=== PATIENT | male | born 1945 | race Caucasian/White ===

== ENCOUNTER → 2017-08-04 | Outpatient (CLI) | payer OTHER ==
[~2017-08-04] MED LIST: IOPAMIDOL-370 100 ML VIAL IV ONE
== END | disposition home or self-care (01) ==
LOC: OIH 07:50
PROVIDERS: ATTEND Internal Medicine Cardiovascular Disease
DX: I71.6 Thoracoabdominal aortic aneurysm, without rupture (principal); K21.9 Gastro-esophageal reflux disease without esophagitis; E78.5 Hyperlipidemia, unspecified
CPT/HCPCS: 71275; 74174; Q9967

== ENCOUNTER → 2018-09-05 | Outpatient (CLI) | payer OTHER ==
[~2018-09-05] MED LIST changes: +IOHEXOL 350 MG/ML 100ML INFUS..BTL IV ONE; -IOPAMIDOL-370 100 ML VIAL IV ONE
== END | disposition home or self-care (01) ==
LOC: RAH 08:57
PROVIDERS: ATTEND Internal Medicine Cardiovascular Disease
DX: N20.0 Calculus of kidney (principal); I71.2 Thoracic aortic aneurysm, without rupture; N40.0 Benign prostatic hyperplasia without lower urinary tract symptoms; I70.0 Atherosclerosis of aorta
CPT/HCPCS: 71275; 74174; Q9967

== ENCOUNTER → 2018-09-11 | Outpatient (CLI) | payer OTHER | END | disposition home or self-care (01) | LOC: SHCH 10:00 | PROVIDERS: ATTEND Internal Medicine Cardiovascular Disease | DX: I51.7 Cardiomegaly (principal); I35.1 Nonrheumatic aortic (valve) insufficiency | CPT/HCPCS: 93306 ==

== ENCOUNTER → 2018-11-15 | Outpatient (CLI) | payer OTHER, SELFPAY | END | disposition home or self-care (01) | LOC: OIH 14:40 | PROVIDERS: ATTEND Internal Medicine Cardiovascular Disease | DX: Z13.6 Encounter for screening for cardiovascular disorders (principal) | CPT/HCPCS: 71275; 74174; 75571 ==

== ENCOUNTER → 2019-04-11 | Outpatient (CLI) | payer OTHER ==
[~2019-04-11] VITALS: Ht 177.8 cm; Wt 95.3 kg
[~2019-04-11] MED LIST changes: -IOHEXOL 350 MG/ML 100ML INFUS..BTL IV ONE; +REGADENOSON 0.4 MG/5 ML PF SYG IVP SCH
== END | disposition home or self-care (01) ==
LOC: SHCH 08:54
PROVIDERS: ATTEND Internal Medicine Cardiovascular Disease
DX: Q21.0 Ventricular septal defect (principal); R94.31 Abnormal electrocardiogram [ECG] [EKG]
CPT/HCPCS: 78452; 93017; 96374; A9500 ×2; J2785

== ENCOUNTER 2019-05-28 08:21 | Observation (INO) | payer OTHER ==
[2019-05-24 14:10] VITALS: BP 117/62
[2019-05-24 14:19] LABS: BASOPHILS % (AUTO) 0.4 % (0.0-5.0); EOSINOPHILS % (AUTO) 1.9 % (0.0-8.0); LYMPHOCYTES % (AUTO) 16.9 % (21.0-51.0); MEAN CORPUSCULAR VOLUME 88.3 fL (79-99); MONOCYTES % (AUTO) 10.1 % (3.0-13.0); NEUTROPHILS % (AUTO) 70.7 % (40.0-77.0); PLATELET COUNT (AUTO) 168 K/uL (130-400); RED BLOOD CELL COUNT(AUTO) 4.76 MIL/uL (4.50-6.20); RED CELL DISTRIBUTION WIDTH 13.9 % (11.0-15.5); WHITE BLOOD COUNT (AUTO) 6.3 K/uL (4.8-10.8)
[2019-05-24 14:21] LABS: APPEARANCE,URINE Clear (CLEAR); BILIRUBIN,URINE Negative (NEGATIVE); COLOR,URINE Yellow (YELLOW); GLUCOSE, URINE (UA) Negative (NEGATIVE); KETONES,URINE Negative (NEGATIVE); LEUKOCYTE ESTERASE ,URINE Trace (NEGATIVE); NITRATE,URINE Negative (NEGATIVE); OCCULT BLOOD,URINE Negative (NEGATIVE); PROTEIN,URINE Negative (NEGATIVE)
[2019-05-24 14:38] LABS: CREATININE 1.4 mg/dL (0.5-1.5); POTASSIUM 4.6 mmol/L (3.5-5.1)
[2019-05-24 14:42] LABS: INR 0.97 (0.85-1.15); PARTIAL THROMBOPLASTIN TIME 27.5 SEC (26.3-35.5); PROTHROMBIN TIME 10.2 SEC (9.6-11.6)
[2019-05-24 14:47] LABS: BACTERIA,URINE Rare /HPF (None Seen); RBC,URINE 0-1 /HPF (0-1)
[2019-05-24 14:48] LABS: SQUAMOUS EPITHELIAL CELL,UR None Seen /HPF (0-2)
--- NOTE | 2019-05-27 15:35 | NUR ---
LABS INFORMED CAITLIN CARLOS OF ABNORMAL BUN/CREA. NO ORDERS RECEIVED. PROCEED WITH PLANNED PROCEDURE.
[~2019-05-28] VITALS: Ht 180.3 cm; Wt 97.2 kg
[2019-05-28] VITALS (8 sets, daily range): BP systolic 109–146; BP diastolic 55–71
[~2019-05-28 08:21] MED LIST changes: +ASPI-1181 PO; +ESCI20TA36 PO; +LOSA50TA64 PO; +METF-444 PO; +METO-391 PO; +OMEP-50 PO; +PRAV10TA39 PO; +PRAZ2CAP2 PO; -REGADENOSON 0.4 MG/5 ML PF SYG IVP SCH; +TAMS-1 PO; +TRAZ-187 PO
[2019-05-28] MEDS ORDERED: SODIUM CHLORIDE 0.9% 1000ML 1,000 ML IV ONE (08:27)
[2019-05-28] MEDS ORDERED: SODIUM BICARB 50MEQ 50ML VIAL ONE (10:42)
[2019-05-28] MEDS ORDERED: LIDOCAINE HCL 2% 20ML ONE (10:43)
[2019-05-28] MEDS ORDERED: HEPARIN SODIUM 1000UNIT/ML 10ML VIAL ONE (10:43)
[2019-05-28] MEDS ORDERED: NITROGLYCERIN 5 MG/ML 10 ML VIAL IV ONE (10:43)
[2019-05-28] MEDS ORDERED: IOHEXOL 350 MG/ML 100ML INFUS..BTL IV ONE (10:43)
[2019-05-28] MEDS ORDERED: IOHEXOL-350 50ML VIAL IV ONE (10:43)
[2019-05-28] MEDS ORDERED: MEPERIDINE-PF 25 MG/ML SYG ONE ×2 (11:11→12:15)
[2019-05-28] MEDS ORDERED: MIDAZOLAM HCL 1 MG/ML 2ML VIAL ONE ×2 (11:11→12:15)
[2019-05-28] MEDS ORDERED: SODIUM CHLORIDE 0.9% 1000ML 1,000 ML IV SCH (12:59)
[2019-05-28] MEDS ORDERED: DEXTROSE 50%-WATER 50 ML DISP.SYRIN IV PRN (13:00)
[2019-05-28] MEDS ORDERED: ONDANSETRON HCL 4 MG/2 ML VIAL IVP PRN (13:00)
[2019-05-28] MEDS ORDERED: ACETAMINOPHEN-CODEINE 300/30MG TAB PO PRN ×2 (13:00)
[2019-05-28] MEDS ORDERED: ASPIRIN 81MG TAB.CHEW ONE (13:01)
[2019-05-28] MEDS ORDERED: CLOPIDOGREL BISULFATE 300 MG TAB ONE (13:02)
[2019-05-28] MEDS ORDERED: ATORVASTATIN CALCIUM 10 MG TABLET PO SCH (21:00)
[2019-05-28] MEDS ORDERED: **HM** PRAZOSIN 2MG PO SCH (21:00)
[2019-05-28] MEDS: INSULIN HUMULIN R 100 UNIT/ML 3ML SQ SCH (21:00)
[2019-05-28] MEDS ORDERED: TAMSULOSIN HCL 0.4 MG CAP.ER.24H PO SCH (21:00)
[2019-05-28] MEDS ORDERED: TRAZODONE HCL 100 MG TABLET PO SCH (21:00)
[2019-05-28] MEDS: **HM** TOPROL XL 50MG PO SCH (21:00)
[2019-05-29 04:01] VITALS: BP 116/67
[2019-05-29 04:18] LABS: BASOPHILS % (AUTO) 0.4 % (0.0-5.0); MEAN CORPUSCULAR HEMOGLOBIN 30.1 pg (27.0-33.0); MEAN CORPUSCULAR HGB CONC 34.5 g/dL (32.0-36.0); MEAN CORPUSCULAR VOLUME 87.1 fL (79-99); MONOCYTES % (AUTO) 10.5 % (3.0-13.0); NEUTROPHILS % (AUTO) 69.1 % (40.0-77.0); PLATELET COUNT (AUTO) 154 K/uL (130-400); RED BLOOD CELL COUNT(AUTO) 4.14 MIL/uL (4.50-6.20); RED CELL DISTRIBUTION WIDTH 13.7 % (11.0-15.5)
[2019-05-29 04:35] LABS: CREATININE 1.2 mg/dL (0.5-1.5); POTASSIUM 4.2 mmol/L (3.5-5.1)
[2019-05-29] MEDS: INSULIN HUMULIN R 100 UNIT/ML 3ML SQ SCH (06:37)
--- NOTE | 2019-05-29 07:30 | NUR ---
AM ASSESSMENT PT LAYING IN BED, HOB ELEVATED 30 DEGREES, RESTING. A/O X 3. NO SOB. NO DISTRESS NOTED. DENIES CHEST PAIN OR DISCOMFORT. DENIES PALPITATIONS. DENIES INCISIONAL PAIN. TELE: SR BBB. DENIES N/V AND/OR DIARRHEA. RT GROIN SOFT, NON-TENDER. NO BLEEDING, NO HEMATOMA NOTED. DSG REMOVED EARLIER BY DR Jyothi STONE. PUNCTURE SITE WELL APPROX. (+) BILATERAL PEDAL PULSES. BLE PINK & WARM TO TOUCH. UP AD MALIKA. INSTRUCTED TO CALL FOR ASSISTANCE. CALL CALVIN W/IN REACH.
[2019-05-29] MEDS: **HM** TOPROL XL 50MG PO SCH (07:54)
[2019-05-29 07:58] VITALS: BP 116/68
[2019-05-29] MEDS ORDERED: CLOP75TA14 PO (08:42)
[2019-05-29] MEDS ORDERED: PANT40TA PO (08:42)
[2019-05-29] MEDS ORDERED: CITALOPRAM 20 MG TABLET PO SCH (09:00)
[2019-05-29] MEDS ORDERED: PANTOPRAZOLE SODIUM 40 MG TABLET.DR PO SCH (09:00)
[2019-05-29] MEDS ORDERED: LOSARTAN 50 MG TABLET PO SCH (09:00)
[2019-05-29] MEDS ORDERED: ASPIRIN 81 MG EC TAB PO SCH (09:00)
[2019-05-29] MEDS ORDERED: CLOPIDOGREL BISULFATE 75 MG TAB PO SCH (09:00)
--- NOTE | 2019-05-29 10:30 | NUR ---
DISCHARGE VERBAL & WRITTEN DISCHARGE INSTRUCTIONS REVIEWED & GIVEN TO PT. QUESTIONS ENCOURAGED & CLARIFIED. PROPER CARE & ACTIVITY AFTER LHC W/STENTS REVIEWED. NEW PRESCRIBED MEDICATIONS REVIEWED. PRESCRIPTION GIVEN TO PT; SIGNED COPY PLACED IN CHART. PT TO HAVE PRESCRIPTION FILLED OUT @ [facility]. TELE ADOLFO REMOVED. IV DISCONTINUED. PT TO GATHER PERSONAL BELONGINGS. WILL NOTIFY STAFF WHEN SPOUSE ARRIVES TO TAKE PT HOME.
--- NOTE | 2019-05-29 10:45 | NUR ---
DISCHARGE SPOUSE HERE TO TAKE PT HOME. PT TAKEN TO PRIVATE VEHICLE VIA WC BY Basia GREGORY PCP, ACCOMPANIED BY SPOUSE. NO DISTRESS NOTED.
== END 2019-05-29 10:45 | disposition home or self-care (01) ==
LOC: DAH 08:21 → DAHIP 08:22 → DAH 08:22 → 2AH 13:29
PROVIDERS: ADMIT Internal Medicine; ATTEND Internal Medicine
DX: I25.119 Atherosclerotic heart disease of native coronary artery with unspecified angina pectoris (principal); I35.0 Nonrheumatic aortic (valve) stenosis; I10 Essential (primary) hypertension; E78.5 Hyperlipidemia, unspecified; N40.0 Benign prostatic hyperplasia without lower urinary tract symptoms; I45.10 Unspecified right bundle-branch block; E11.9 Type 2 diabetes mellitus without complications; G47.33 Obstructive sleep apnea (adult) (pediatric); Z99.89 Dependence on other enabling machines and devices; R79.89 Other specified abnormal findings of blood chemistry
CPT/HCPCS: 36415; 71045; 80048; 80061; 81001; 82948; 85025; 85610; 85730; 93005; 93458; 99156; 99157; A4606; C1760; C1769; C1887; C1894; C9600; G0378; J1644; J2175; J2250; J3490; J7030; Q9967

== ENCOUNTER 2019-06-21 09:20 | Observation (INO) | payer OTHER ==
[~2019-06-21] VITALS: Ht 177.8 cm; Wt 99.4 kg
[~2019-06-21 09:20] MED LIST changes: +CLOP75TA14 PO; +OMEP-298 PO; -OMEP-50 PO; +PANT40TA PO
[2019-06-21] MEDS ORDERED: ASPIRIN 325 MG TABLET ONE (09:51)
[2019-06-21 10:17] LABS: BASOPHILS % (AUTO) 0.5 % (0.0-5.0); EOSINOPHILS % (AUTO) 2.4 % (0.0-8.0); HEMATOCRIT 40.8 % (42-54); LYMPHOCYTES % (AUTO) 16.1 % (21.0-51.0); MEAN CORPUSCULAR HEMOGLOBIN 29.2 pg (27.0-33.0); MEAN CORPUSCULAR HGB CONC 33.3 g/dL (32.0-36.0); MEAN CORPUSCULAR VOLUME 87.6 fL (79-99); MONOCYTES % (AUTO) 10.7 % (3.0-13.0); PLATELET COUNT (AUTO) 180 K/uL (130-400); RED BLOOD CELL COUNT(AUTO) 4.66 MIL/uL (4.50-6.20); RED CELL DISTRIBUTION WIDTH 12.8 % (11.0-15.5); WHITE BLOOD COUNT (AUTO) 6.6 K/uL (4.8-10.8)
[2019-06-21 10:21] LABS: CREATININE 1.4 mg/dL (0.5-1.5); POTASSIUM 4.3 mmol/L (3.5-5.1)
[2019-06-21 10:22] LABS: INR 0.98 (0.85-1.15); PARTIAL THROMBOPLASTIN TIME 26.8 SEC (26.3-35.5); PROTHROMBIN TIME 10.3 SEC (9.6-11.6)
[2019-06-21 10:25] LABS: ALBUMIN 4.2 g/dL (3.5-5.0); BILIRUBIN,TOTAL 0.7 mg/dL (0.2-1.0); TOTAL PROTEIN, SERUM 7.5 g/dL (6.0-8.3)
[2019-06-21 10:56] LABS: B-TYPE NATRIURETIC PEPTIDE 45 pg/mL (0-100)
[2019-06-21] MEDS ORDERED: LACTULOSE 20 GM/30 ML UDCUP PO PRN (13:15)
[2019-06-21] MEDS ORDERED: MECLIZINE HCL 25 MG TABLET PO PRN (13:15)
[2019-06-21] MEDS: MECLIZINE HCL 25 MG TABLET PO SCH (13:15)
[2019-06-21] MEDS ORDERED: ONDANSETRON HCL 4 MG/2 ML VIAL IV PRN (13:15)
[2019-06-21] MEDS ORDERED: ACETAMINOPHEN 325 MG TAB PO PRN (13:15)
[2019-06-21] MEDS: NITROGLYCERIN 1GM/1 INCH PACKET TD SCH ×2 (13:30→20:33)
[2019-06-21] MEDS ORDERED: MECLIZINE HCL 25 MG TABLET ONE (15:47)
[2019-06-21] MEDS ORDERED: NITROGLYCERIN 1GM/1 INCH PACKET TD ONE (16:01)
[2019-06-21 18:45] VITALS: BP 120/67
[2019-06-21 19:57] VITALS: BP 102/60
[2019-06-21] MEDS: TAMSULOSIN HCL 0.4 MG CAP.ER.24H PO SCH (20:34)
[2019-06-21] MEDS: FAMOTIDINE 20MG TAB 20 MG TAB PO SCH (20:34)
[2019-06-21] MEDS: TRAZODONE HCL 100 MG TABLET PO SCH (20:34)
[2019-06-21] MEDS: ATORVASTATIN CALCIUM 10 MG TABLET PO SCH (20:34)
[2019-06-21 23:30] VITALS: BP 109/58
[2019-06-22 04:18] VITALS: BP 94/54
[2019-06-22 05:47] LABS: BASOPHILS % (AUTO) 0.5 % (0.0-5.0); EOSINOPHILS % (AUTO) 2.4 % (0.0-8.0); LYMPHOCYTES % (AUTO) 18.8 % (21.0-51.0); MEAN CORPUSCULAR HEMOGLOBIN 29.1 pg (27.0-33.0); MEAN CORPUSCULAR HGB CONC 33.2 g/dL (32.0-36.0); MEAN CORPUSCULAR VOLUME 87.7 fL (79-99); MONOCYTES % (AUTO) 11.5 % (3.0-13.0); NEUTROPHILS % (AUTO) 66.5 % (40.0-77.0); PLATELET COUNT (AUTO) 162 K/uL (130-400); RED BLOOD CELL COUNT(AUTO) 4.22 MIL/uL (4.50-6.20); WHITE BLOOD COUNT (AUTO) 5.9 K/uL (4.8-10.8)
[2019-06-22 06:11] LABS: CREATININE 1.4 mg/dL (0.5-1.5); POTASSIUM 4.1 mmol/L (3.5-5.1)
[2019-06-22] MEDS: ENOXAPARIN SODIUM 30 MG/0.3 ML SQ SCH (08:08)
[2019-06-22] MEDS: CLOPIDOGREL BISULFATE 75 MG TAB PO SCH (08:09)
[2019-06-22] MEDS: METFORMIN HCL 500 MG TABLET PO SCH (08:09)
[2019-06-22] MEDS: ASPIRIN 81 MG EC TAB PO SCH (08:09)
[2019-06-22] MEDS: CITALOPRAM 20 MG TABLET PO SCH (08:10)
[2019-06-22] MEDS: LOSARTAN 50 MG TABLET PO SCH (08:10)
[2019-06-22] MEDS: **HM** TOPROL XL 50MG PO SCH ×2 (08:12→20:30)
[2019-06-22] MEDS: FAMOTIDINE 20MG TAB 20 MG TAB PO SCH ×2 (08:13→20:28)
[2019-06-22 08:14] VITALS: BP 90/53
[2019-06-22 11:00] VITALS: BP 103/56
[2019-06-22] MEDS: MECLIZINE HCL 25 MG TABLET PO SCH (13:49)
[2019-06-22] MEDS: NITROGLYCERIN 1GM/1 INCH PACKET TD SCH ×2 (14:35→20:36)
[2019-06-22 16:29] VITALS: BP 115/71
--- NOTE | 2019-06-22 16:30 | NUR ---
After calling to notify a Cardiology consult for the second time today Dr. Blackwell call back and was notify. Pt reason for consult (chest pain), recent procedures and current pt status including labs and V/S were discussed with Dr. Blackwell and he verbalized that he will see the pt later this afternoon. NICOLAS Chauhan was notify that Dr. Blackwell will see and evaluate the pt later this afternoon. Per NICOLAS Chauhan pt will be D/C after pt is clear by Cardiology.
[2019-06-22] MEDS ORDERED: MECL-111 PO (16:43)
[2019-06-22 19:58] VITALS: BP 122/66
--- NOTE | 2019-06-22 20:00 | NUR ---
CARDIOLOGY CLEARANCE As per report from day nurse, patient is ok to be discharge if cardiology clears patient to be discharge. [employer] Programmer MD Blackwell was called by day nurse and reported that MD was notified and will see patient. Discussed plan of discharge to patient and informed patient that cardiology MD has to clear patient before going home. Patient states that he would like to stay overnight due to not able to drive at night. Explained to patient that his request can be asked to the modeling agent when rounding.
[2019-06-22] MEDS: ATORVASTATIN CALCIUM 10 MG TABLET PO SCH (20:28)
[2019-06-22] MEDS: TAMSULOSIN HCL 0.4 MG CAP.ER.24H PO SCH (20:28)
[2019-06-22] MEDS: TRAZODONE HCL 100 MG TABLET PO SCH (20:29)
[2019-06-22] MEDS ORDERED: **HM** PRAZOSIN 2MG PO SCH (21:00)
[2019-06-23] VITALS: BP 128/70
[2019-06-23 04:05] VITALS: BP 104/61
[2019-06-23] MEDS: NITROGLYCERIN 1GM/1 INCH PACKET TD SCH (05:30)
[2019-06-23 06:00] LABS: BASOPHILS % (AUTO) 0.3 % (0.0-5.0); EOSINOPHILS % (AUTO) 1.9 % (0.0-8.0); HEMATOCRIT 37.9 % (42-54); MEAN CORPUSCULAR HEMOGLOBIN 28.8 pg (27.0-33.0); MEAN CORPUSCULAR HGB CONC 32.7 g/dL (32.0-36.0); MEAN CORPUSCULAR VOLUME 87.9 fL (79-99); NEUTROPHILS % (AUTO) 70.6 % (40.0-77.0); PLATELET COUNT (AUTO) 158 K/uL (130-400); RED BLOOD CELL COUNT(AUTO) 4.31 MIL/uL (4.50-6.20); RED CELL DISTRIBUTION WIDTH 12.8 % (11.0-15.5); WHITE BLOOD COUNT (AUTO) 6.2 K/uL (4.8-10.8)
[2019-06-23 06:37] LABS: CREATININE 1.3 mg/dL (0.5-1.5); POTASSIUM 4.5 mmol/L (3.5-5.1)
[2019-06-23 08:00] VITALS: BP 108/61
[2019-06-23] MEDS: FAMOTIDINE 20MG TAB 20 MG TAB PO SCH (09:35)
[2019-06-23] MEDS: CLOPIDOGREL BISULFATE 75 MG TAB PO SCH (09:35)
[2019-06-23] MEDS: METFORMIN HCL 500 MG TABLET PO SCH (09:36)
[2019-06-23] MEDS: LOSARTAN 50 MG TABLET PO SCH (09:36)
[2019-06-23] MEDS: ASPIRIN 81 MG EC TAB PO SCH (09:36)
[2019-06-23] MEDS: CITALOPRAM 20 MG TABLET PO SCH (09:36)
[2019-06-23] MEDS: **HM** TOPROL XL 50MG PO SCH (09:37)
[2019-06-23] MEDS: ENOXAPARIN SODIUM 30 MG/0.3 ML SQ SCH (09:37)
--- NOTE | 2019-06-23 09:45 | NUR ---
As per Felipa from [facility], since Dr Blackwell did not come to see pt yesterday we need to call Michelle TUCKER for Dr Dior and informed her of what happened last night. Placed call to Michelle TUCKER to [phone] and she said she will follow up.
--- NOTE | 2019-06-23 11:11 | NUR ---
SANAZ TUCKER PER SANAZ PT OK TO FOLLOW UP WITH COMPUTER NUMERICAL CONTROL GRINDER (CHASE) OUTPATIENT R/T SYMPTOMS BVEING RESOLVED AND DIAGNOSTICS HAVE BEEN NEGATIVE. PER HOSPITALIST COSME FIBER TECHNOLOGIST OK TO DISCHARGE
--- NOTE | 2019-06-23 11:43 | NUR ---
EDUCATION PT EDUCATED ON IMPORTANCE OF OBTAINING F/U APPT WITH DR STONE RELATED TO SYMPTOMS HE WAS EXPERIENCING, POSSIBLY FOR A STRESS TEST TO BE DONE. PT VERBALIZED UNDERSTANDING AND IS IN AGREEMENT WITH DISCHARGE
== END 2019-06-23 12:05 | disposition home or self-care (01) ==
LOC: EDH 09:20 → EDHIP 13:15 → 3BH 18:25
PROVIDERS: ADMIT Internal Medicine; ATTEND Internal Medicine
DX: R07.89 Other chest pain (principal); H81.10 Benign paroxysmal vertigo, unspecified ear; I10 Essential (primary) hypertension; N40.0 Benign prostatic hyperplasia without lower urinary tract symptoms; E78.5 Hyperlipidemia, unspecified; E11.9 Type 2 diabetes mellitus without complications; F32.9 Major depressive disorder, single episode, unspecified; I25.10 Atherosclerotic heart disease of native coronary artery without angina pectoris; E78.00 Pure hypercholesterolemia, unspecified; Z95.5 Presence of coronary angioplasty implant and graft; Z79.82 Long term (current) use of aspirin; Z79.84 Long term (current) use of oral hypoglycemic drugs; Z79.899 Other long term (current) drug therapy
CPT/HCPCS: 36415 ×3; 70450; 71045; 80048 ×2; 80053; 82550; 83880; 84484 ×4; 85025 ×3; 85610; 85730; 93005 ×4; 96372 ×2; 99284; G0378 ×47; J1650 ×2

== ENCOUNTER → 2020-05-14 | Outpatient (CLI) | payer OTHER ==
[~2020-05-14] MED LIST changes: -ASPI-1181 PO; +ASPI-1443 PO; +MECL-160 PO; -OMEP-298 PO; +OMEP20CA12 PO
== END | disposition home or self-care (01) ==
LOC: SHCH 08:11
PROVIDERS: ATTEND Internal Medicine Cardiovascular Disease
DX: I71.2 Thoracic aortic aneurysm, without rupture (principal); I10 Essential (primary) hypertension; R55 Syncope and collapse
CPT/HCPCS: 71275; 93306; 93356

== ENCOUNTER → 2020-12-29 | Outpatient (CLI) | payer OTHER ==
[~2020-12-29] MED LIST changes: -ESCI20TA36 PO; +ESCI20TA38 PO
== END | disposition home or self-care (01) ==
LOC: SHCH 10:35
PROVIDERS: ATTEND Internal Medicine Cardiovascular Disease
DX: R09.89 Other specified symptoms and signs involving the circulatory and respiratory systems (principal)
CPT/HCPCS: 93880

== ENCOUNTER → 2021-10-07 | Outpatient (CLI) | payer OTHER ==
[~2021-10-07] MED LIST changes: +IOHEXOL 350 MG/ML 100ML INFUS..BTL IV ONE
== END | disposition home or self-care (01) ==
LOC: RAH 08:01
PROVIDERS: ATTEND Internal Medicine Cardiovascular Disease
DX: I71.2 Thoracic aortic aneurysm, without rupture (principal); I51.7 Cardiomegaly; I25.10 Atherosclerotic heart disease of native coronary artery without angina pectoris; I70.8 Atherosclerosis of other arteries; K44.9 Diaphragmatic hernia without obstruction or gangrene; K76.0 Fatty (change of) liver, not elsewhere classified; M47.815 Spondylosis without myelopathy or radiculopathy, thoracolumbar region
CPT/HCPCS: 71275; 74175; Q9967

== ENCOUNTER → 2022-09-12 | Outpatient (CLI) | payer OTHER ==
[~2022-09-12] MED LIST changes: +CLOP-31 PO; -CLOP75TA14 PO
== END | disposition home or self-care (01) ==
LOC: RAH 08:01
PROVIDERS: ATTEND Internal Medicine Cardiovascular Disease
DX: I71.20 Thoracic aortic aneurysm, without rupture, unspecified (principal); I11.9 Hypertensive heart disease without heart failure; K44.9 Diaphragmatic hernia without obstruction or gangrene; I70.8 Atherosclerosis of other arteries; N32.89 Other specified disorders of bladder; M47.815 Spondylosis without myelopathy or radiculopathy, thoracolumbar region
CPT/HCPCS: 75635; 71275; Q9967

== ENCOUNTER → 2023-09-21 | Outpatient (CLI) | payer OTHER ==
[~2023-09-21] MED LIST changes: -IOHEXOL 350 MG/ML 100ML INFUS..BTL IV ONE
[2023-09-21 12:33] LABS: CREATININE 1.4 mg/dL (0.5-1.5); POTASSIUM 4.3 mmol/L (3.5-5.1)
== END | disposition home or self-care (01) ==
LOC: LAB 11:08
PROVIDERS: ATTEND Internal Medicine Cardiovascular Disease
DX: I10 Essential (primary) hypertension (principal)
CPT/HCPCS: 36415; 80048

== ENCOUNTER → 2023-10-05 | Outpatient (CLI) | payer OTHER ==
[~2023-10-05] MED LIST changes: +IOHEXOL 350 MG/ML 100ML INFUS..BTL IV ONE
== END | disposition home or self-care (01) ==
LOC: RAH 09-26 10:35
PROVIDERS: ATTEND Internal Medicine Cardiovascular Disease
DX: I71.11 Aneurysm of the ascending aorta, ruptured (principal); I70.0 Atherosclerosis of aorta
CPT/HCPCS: 74174; 71275; Q9967

== ENCOUNTER → 2023-10-10 | Outpatient (CLI) | payer OTHER ==
[~2023-10-10] MED LIST changes: -IOHEXOL 350 MG/ML 100ML INFUS..BTL IV ONE; +REGADENOSON 0.4 MG/5 ML PF SYG IVP ONE
== END | disposition home or self-care (01) ==
LOC: SHCH 08:36
PROVIDERS: ATTEND Internal Medicine Cardiovascular Disease
DX: I25.10 Atherosclerotic heart disease of native coronary artery without angina pectoris (principal)
CPT/HCPCS: 78452; 96374; 93017; J2785; A9500 ×2

== ENCOUNTER 2023-11-20 05:49 | Day surgery (SDC) | payer OTHER ==
[2023-11-17 08:53] LABS: BASOPHILS # (AUTO) 0.03 K/uL (0.00-0.20); BASOPHILS % (AUTO) 0.4 % (0.0-5.0); EOSINOPHILS # (AUTO) 0.18 K/uL (0.00-0.70); EOSINOPHILS % (AUTO) 2.6 % (0.0-8.0); HEMATOCRIT 44.6 % (42-54); IMMATURE GRANULOCYTE ABSOLUTE 0.02 K/uL (0-1); LYMPHOCYTES # (AUTO) 1.3 K/uL (1.0-4.8); LYMPHOCYTES % (AUTO) 19.5 % (21.0-51.0); MEAN CORPUSCULAR HEMOGLOBIN 28.8 pg (27.0-33.0); MEAN CORPUSCULAR HGB CONC 31.8 g/dL (32.0-36.0); MEAN CORPUSCULAR VOLUME 90.5 fL (79-99); MONOCYTES # (AUTO) 0.8 K/uL (0.1-1.0); MONOCYTES % (AUTO) 11.2 % (3.0-13.0); NEUTROPHILS # (AUTO) 4.5 K/uL (1.8-7.7); PLATELET COUNT (AUTO) 181 K/uL (130-400); RED BLOOD CELL COUNT(AUTO) 4.93 MIL/uL (4.50-6.20); RED CELL DISTRIBUTION WIDTH 13.5 % (11.0-15.5); WHITE BLOOD COUNT (AUTO) 6.9 K/uL (4.8-10.8)
[2023-11-17 08:59] LABS: APPEARANCE,URINE CLEAR (CLEAR); BILIRUBIN,URINE NEGATIVE (NEGATIVE); COLOR,URINE YELLOW (YELLOW); GLUCOSE, URINE (UA) NEGATIVE (NEGATIVE); KETONES,URINE NEGATIVE (NEGATIVE); LEUKOCYTE ESTERASE ,URINE NEGATIVE Leu/uL (NEGATIVE); NITRATE,URINE NEGATIVE (NEGATIVE); OCCULT BLOOD,URINE NEGATIVE (NEGATIVE); PH,URINE 5.5 (5.0-8.0); PROTEIN,URINE 10 mg/dL (NEGATIVE); UROBILINOGEN,URINE 0.2 mg/dL (0.2-1.0)
[2023-11-17 09:01] LABS: CREATININE 1.6 mg/dL (0.5-1.3); POTASSIUM 4.6 mmol/L (3.5-5.1)
[2023-11-17 09:03] LABS: ADD UA MICROSCOPIC YES
[2023-11-17 09:07] LABS: BACTERIA,URINE Rare /HPF (None Seen); RBC,URINE 0-1 /HPF (0-1); SQUAMOUS EPITHELIAL CELL,UR Rare /HPF (0-2); WBC,URINE 0-1 /HPF (0-1)
[2023-11-17 09:10] LABS: B-TYPE NATRIURETIC PEPTIDE 35 pg/mL (0-100)
[2023-11-17 09:12] VITALS: BP 143/70; PULSE 60; RESP 18
[2023-11-17 09:14] LABS: INR <= 0.93 (0.85-1.15); PROTHROMBIN TIME 10.9 SEC (9.6-11.6)
[2023-11-17 09:15] LABS: PARTIAL THROMBOPLASTIN TIME 30.1 SEC (26.3-35.5)
[2023-11-20] VITALS (11 sets, daily range): BP systolic 108–142; BP diastolic 53–80; PULSE 53–62; RESP 14–16
[~2023-11-20] VITALS: Ht 177.8 cm; Wt 96.0 kg
[~2023-11-20 05:49] MED LIST changes: +AEC81 PO; -ASPI-1443 PO; +CHOL200013 PO; -CLOP-31 PO; +CYAN-106 PO; -ESCI20TA38 PO; +LORA10TA7 PO; -MECL-160 PO; -METF-444 PO; -OMEP20CA12 PO; -PANT40TA PO; +PANT40TA54 PO; -PRAZ2CAP2 PO; -REGADENOSON 0.4 MG/5 ML PF SYG IVP ONE; -TAMS-1 PO; -TRAZ-187 PO; +ZINC50TA64 PO; +[UNRECOGNIZED DRUG - OTHER] PO
[2023-11-20] MEDS: 0.9%NACL 1000ML 1,000 ML IV ONE (06:49)
[2023-11-20] MEDS ORDERED: IOHEXOL-350 75 ML VIAL IV ONE (07:17)
[2023-11-20] MEDS ORDERED: IOHEXOL 350 MG/ML 100ML INFUS..BTL IV ONE (07:17)
[2023-11-20] MEDS ORDERED: IOHEXOL-350 50ML VIAL IV ONE (07:17)
[2023-11-20] MEDS ORDERED: LIDOCAINE HCL 400MG/20ML VIAL ONE (07:17)
[2023-11-20] MEDS ORDERED: SODIUM BICARB 50MEQ 50ML VIAL 50 ML ONE (07:17)
[2023-11-20] MEDS ORDERED: HEPARIN 10,000 UNIT/10ML (1,000 UNIT/ML) VIAL ONE (07:17)
[2023-11-20] MEDS ORDERED: MEPERIDINE-PF 25 MG/ML SYG ONE ×2 (07:30→07:48)
[2023-11-20] MEDS ORDERED: MIDAZOLAM HCL 1 MG/ML 2ML VIAL ONE ×2 (07:31→07:48)
[2023-11-20] MEDS ORDERED: NITROGLYCERIN 50MG VIAL ONE (07:36)
[2023-11-20] MEDS ORDERED: NICARDIPINE 25MG INJ IV ONE (07:42)
[2023-11-20] MEDS ORDERED: 0.9%NACL 1000ML 1,000 ML IV SCH (08:30)
== END 2023-11-20 12:25 | disposition home or self-care (01) ==
LOC: DAH 05:49
PROVIDERS: ATTEND Internal Medicine Cardiovascular Disease
DX: I25.119 Atherosclerotic heart disease of native coronary artery with unspecified angina pectoris (principal); E11.22 Type 2 diabetes mellitus with diabetic chronic kidney disease; I12.9 Hypertensive chronic kidney disease with stage 1 through stage 4 chronic kidney disease, or unspecified chronic kidney disease; N18.9 Chronic kidney disease, unspecified; G47.33 Obstructive sleep apnea (adult) (pediatric); I45.10 Unspecified right bundle-branch block; Z79.899 Other long term (current) drug therapy; Z79.01 Long term (current) use of anticoagulants; Z98.890 Other specified postprocedural states; Z79.82 Long term (current) use of aspirin; Z86.16 Personal history of COVID-19; Z95.5 Presence of coronary angioplasty implant and graft
CPT/HCPCS: 80048; 83880; 85025; 85610; 85730; 81001; 36415 ×2; 71045; 93005; 93458; 85347; C1769 ×2; C1887; A4649; C1894; J3490 ×4; J7030; J1644 ×2; J2250 ×2; J2175 ×2; Q9967; A4215; A4222; A4221; A4663; A4216; A4606; Q9965; A4223 ×3; 96360; 96361; 99156; 99157

== ENCOUNTER → 2024-06-11 | Outpatient (CLI) | payer OTHER ==
[2024-06-11 12:21] LABS: CREATININE 1.4 mg/dL (0.5-1.3); POTASSIUM 4.4 mmol/L (3.5-5.1)
== END | disposition home or self-care (01) ==
LOC: LAB 09:56
PROVIDERS: ATTEND Internal Medicine Cardiovascular Disease
DX: I10 Essential (primary) hypertension (principal)
CPT/HCPCS: 36415; 80048

== ENCOUNTER → 2024-09-11 | Outpatient (CLI) | payer OTHER ==
[2024-09-11 12:31] LABS: CREATININE 1.3 mg/dL (0.5-1.3); POTASSIUM 4.3 mmol/L (3.5-5.1)
== END | disposition home or self-care (01) ==
LOC: LAB 09:35
PROVIDERS: ATTEND Internal Medicine Cardiovascular Disease
DX: I25.119 Atherosclerotic heart disease of native coronary artery with unspecified angina pectoris (principal)
CPT/HCPCS: 36415; 80048

== ENCOUNTER → 2025-04-18 | Outpatient (CLI) | payer OTHER ==
[~2025-04-18] MED LIST changes: +IOHEXOL-350 75 ML VIAL IV ONE; +PRAV10TA37 PO; -PRAV10TA39 PO
--- NOTE | 2025-04-23 21:57 | CARDIOLOGY ---
RAD REPORT: [facility] CT ANGIO RADIOLOGY REPORT: CORONARY CT ANGIOGRAPHY DATE: Apr 18, 2025 QUALITY: Excellent CLINICAL HISTORY AND INDICATION: [ chest pain ] TECHNIQUE: After obtaining a preliminary field engineer image, contrast imaging performed on an Aquillon [id number] scanner. A dedicated, limited window, coronary imaging protocol was used, with single breath-hold, retrospective ECG gating, and automated arrhythmia rejection. 100 cc of low osmolar contrast agent: Omnipaque 350 was delivered via a 18-gauge IV catheter in the right antecubital fossa, using a power injector and followed by 60 cc of normal saline bolus as a chaser. Collimated images were reformatted at 0.5 mm intervals, and sent to an offline independent workstation for interpretation, using 3D anatomic reconstructions: Curved multiplanar reconstructions, maximum intensity projections, and multiplanar imaging. No metoprolol was administered prior to scanning due to low baseline heart rate. 0.8 mg SL nitroglycerin was given. CORONARY ARTERY DESCRIPTIONS: The coronary arteries arise in normal position. Left main coronary artery: Normal caliber vessel that bifurcates into the LAD and LCx. There is non-calcified plaque in the distal left main with 20-25% stenosis. Left anterior descending coronary artery: Normal caliber vessel and gives rise to diagonal and septal branches. There is a patent drug eluting stent in the proximal LAD. Left circumflex coronary artery: Normal caliber, nondominant and gives rise to a large OM branch. There is a patent drug eluting stent in the proximal LCx into the OM1. Right coronary artery: Large, dominant vessel giving rise to the PL and PDA branches. There is mixed calcified and noncalcified plaque in the mid RCA with 60-70% stenosis. The PDA is not well visualized. CAD-RADs: 3, moderate stenosis of the mid RCA. Thoracic Aorta: There is a proximal ascending aortic aneurysm of 4.6 cm. Meenakshi Song MD Cardiovascular Disease [facility] MEENAKSHI SONG MD Apr 23, 2025 21:57
== END | disposition home or self-care (01) ==
LOC: RAH 07:52
PROVIDERS: ATTEND Internal Medicine Cardiovascular Disease
DX: Z13.6 Encounter for screening for cardiovascular disorders (principal); I71.40 Abdominal aortic aneurysm, without rupture, unspecified
CPT/HCPCS: 75574; 74175; Q9967